=== PATIENT | male | born 2005 | race African-American/Black ===

== ENCOUNTER 2023-05-26 21:14 | Emergency (ER) | payer SELFPAY ==
[~2023-05-26] VITALS: Ht 188 cm; Wt 99.8 kg
[2023-05-26 21:50] VITALS: O2SAT 97
[2023-05-26 21:55] LABS: BASOPHILS % (AUTO) 0.3 % (0.0-2.0); EOSINOPHILS # (AUTO) 0.4 K/uL (0.0-0.7); EOSINOPHILS % (AUTO) 4.7 % (0.0-6.0); HEMATOCRIT 43 % (39-51); HEMOGLOBIN 14.4 g/dL (13.5-17.5); LYMPHOCYTES % (AUTO) 25.2 % (20.0-44.0); MEAN CORPUSCULAR HEMOGLOBIN 31 PG (26.0-33.0); MEAN CORPUSCULAR HGB CONC 33 g/dl (31.0-36.0); MEAN CORPUSCULAR VOLUME 95 fL (80-96); MONOCYTES % (AUTO) 12.2 % (2.0-12.0); NEUTROPHILS # (AUTO) 4.6 K/uL (1.8-8.9); NEUTROPHILS % (AUTO) 57.6 % (43.0-81.0); PLATELET COUNT (AUTO) 165 K/uL (150-450); RED BLOOD CELL COUNT(AUTO) 4.58 MIL/uL (4.5-6.0); RED CELL DISTRIBUTION WIDTH 12.9 % (11.5-15.0); WHITE BLOOD COUNT (AUTO) 7.9 K/uL (4.3-11.0)
[2023-05-26 22:00] VITALS: O2SAT 100
[2023-05-26] MEDS ORDERED: IPRATROPIUM NEB FS 0.5 MG/2.5 ML AMPUL.NEB NEB ONE ×2 (22:00→23:00)
[2023-05-26] MEDS ORDERED: methylPREDNISolone SOD SUCC 125 MG/2ML VIAL IV ONE (22:00)
[2023-05-26] MEDS ORDERED: ALBUTEROL FS 2.5 MG/3 ML VIAL.NEB NEB ONE ×2 (22:00→23:00)
[2023-05-26 22:15] VITALS: O2SAT 96
[2023-05-26 22:25] VITALS: O2SAT 100
[2023-05-26 22:28] LABS: CALCIUM, SERUM 8.6 mg/dL (8.5-10.1); POTASSIUM 3.8 mmol/L (3.5-5.1)
[2023-05-26 22:34] LABS: ALBUMIN 3.5 g/dL (3.4-5.0); BILIRUBIN,TOTAL 0.3 mg/dL (0.2-1.0)
[2023-05-26 22:45] LABS: BILIRUBIN,DIRECT 0.1 mg/dL (0.0-0.2)
[2023-05-26 22:59] VITALS: BP 128/78; TEMP 98.1; O2SAT 99
== END 2023-05-26 22:59 | disposition home or self-care (01) ==
LOC: ER 21:24
DX: J45.909 Unspecified asthma, uncomplicated (principal)
CPT/HCPCS: 99285; 96374; 71045; 85025; 80048; 80076; 85378; 36415; 94799; 94640 ×2; J2930